=== PATIENT | male | born 1950 | race Caucasian/White ===

== ENCOUNTER → 2016-08-19 | Outpatient (CLI) | payer MEDICARE, BC ==
[~2016-08-19] MED LIST: ASPIRIN81 M2 PO; BRILINTA90 MG PO; CHEWABLE ASPIRI81 MG PO; CLOPIDOGREL75 MG PO; DESYREL50 MG PO; FLOMAX0.4 M1 PO; GABAPENTIN300 MG PO; GLIPIZIDE10 MG PO; GLUCOPHAGE500 M1 PO; GLUCOTROL XL PO; ISOSORBIDE MONO30 M1 PO; LIPITOR80 MG PO; METOPROLOL TAR25 MG PO; MONTELUKAST SOD10 MG PO; NEURONTIN100 MG PO; NICOTINE PATCH1 EACH TD; NITROGLYGERIN0.4 MG SL; NORCO 7.5-3251 EACH PO; NORVASC10 MG PO; VASOTEC2.5 M1 PO; VICODIN ES 7.51 EAC1 PO; VITAMIN D350000 UNIT PO; WELLBUTRIN SR150 M1
--- NOTE | ~2016-08-19 | ST ---
Unit #: [id number] #: [id number] Patient: ИВАН VELASQUEZ [id number] [facility] [address] [facility]. [place], [place] [address] [id number] O MR#: [id number] NAME: ИВАН VELASQUEZ : 1950 SEX: M STUDY DATE/TIME: 08/19/2016 UNIT: [facility] ROOM: STUDY DESCRIPTION: Stress Test Attending Physician: Michael Marinelli M.D. Referring Physician: Michael Marinelli M.D. Primary Care Physician: Yoselin Chirinos [place] CARDIOLOGY REPORT EXAM EKG Portion of a Walking Lexiscan Cardiolite Stress Test REASON FOR EXAM Preop clearance and shortness of breath. DESCRIPTION Baseline EKG was normal sinus rhythm with voltage criteria positive for LVH. Ventricular rate of 868 beats per minute. Total of 0.4 mg of Lexiscan was injected per protocol followed by Cardiolite. The patient was only able to walk one minute before having to stop due to shortness of breath. His maximum METs was 1.5. Resting heart rate of 86 beats per minute moose to a maximum heart rate of 117 bats per minute which represented 75% of the maximal age predicted heart rate. The resting blood pressure of 139/77 moose to a maximum blood pressure of 166/77. The walking portion of the Lexiscan was stopped due to patient's symptoms of shortness of breath and dizziness. However, the Lexiscan had been infused. There were some ST changes and T wave inversions noted in leads II, III and AVF. He did have ST depression primarily in leads II and AVF. No arrhythmias were noted and no ectopy was noted. IMPRESSION 1. This is a positive test. The patient had ST depression in primarily inferior leads. 2. Patient did develop extreme shortness of breath and dizziness and the walking portion of the Lexiscan was terminated prematurely after one minute of exercise. 3. There were no arrhythmias noted. 4. Please correlate with Cardiolite imaging. Dictated by... Indira Duckworth APRN for LizethHernando Richard TD: 08/19/2016 10:50 JOB #: [id number] Unit #: [id number] #: [id number] Patient: ИВАН VELASQUEZ CARDIOLOGY REPORT X CARDIOLOGY REPORT
--- NOTE | ~2016-08-19 | TH ---
Unit #: [id number] #: [id number] Patient: ROBERT VELASQUEZ [id number] [address] [place], [place] [address] [id number] O MR#: [id number] NAME: ИВАН VELASQUEZ : 1950 SEX: M STUDY DATE/TIME: 08/19/2016 UNIT: [facility] ROOM: STUDY DESCRIPTION: Lexiscan stress test - Nuclear Attending Physician: Michael Marinelli M.D. Referring Physician: Michael Marinelli M.D. Primary Care Physician: Yoselin Chirinos [place] CARDIOLOGY REPORT PROCEDURE PERFORMED Lexiscan Cardiolite stress test - Nuclear portion. PROCEDURE Using technetium 99m-labeled Cardiolite, rest and stress SPECT images were obtained. Multiple SPECT images were obtained in various views, including horizontal and vertical long axis and short axis views of the left ventricle. Images were obtained by gated SPECT method. The patient was administered 11.99 mCi of Cardiolite at rest. The patient was administered 31.8 mCi of Cardiolite after Lexiscan infusion was completed. On the stress images, there is a medium sized area of severely decreased tracer uptake activity inferiorly. The rest images show normal perfusion. Comparing the rest and stress images, there is suspicion for stress-induced ischemia involving the inferior wall of the left ventricle. The left ventricular ejection fraction is calculated to be 61%. There is no focal wall motion abnormality seen. CONCLUSION 1. There is suspicion for a medium sized area of stress-induced ischemia involving the inferior wall of the left ventricle. 2. The left ventricular ejection fraction is calculated to be 61%. 3. There is no focal wall motion abnormality seen. 4. Suspicion for ischemia involving the RCA territory. 5. Technically very limited study due to the patient's body habitus. Clinical correlation is requested. Dictated by... Hernando Castellanos TD: 08/19/2016 16:12 JOB #: [id number] Unit #: [id number] #: [id number] Patient: ROBERT VELASQUEZ CARDIOLOGY REPORT X Lizeth Srinivasan MD <ELECTRONICALLY SIGNED> 12/31/16 1429 CARDIOLOGY REPORT
== END | disposition home or self-care (01) ==
LOC: CNUC 07:33
DX: Z01.810 Encounter for preprocedural cardiovascular examination (principal); E10.9 Type 1 diabetes mellitus without complications; R94.31 Abnormal electrocardiogram [ECG] [EKG]; R94.39 Abnormal result of other cardiovascular function study
CPT/HCPCS: 78452; 93017; A9500; J2785

== ENCOUNTER → 2017-02-17 | Outpatient (CLI) | payer MEDICARE, BC ==
[2017-02-17 12:23] LABS: HEMATOCRIT 38.9 % (38.0-50.0); HEMOGLOBIN 12.7 gm/dL (13.0-16.0); MEAN CELL VOLUME 86.7 FL (83-96); MEAN CORPUSCULAR HEMOGLOBIN 28.4 PG (28-34); MEAN CORPUSCULAR HGB CONC 32.8 g/dL (30-36); MEAN PLATELET VOLUME 7.2 FL (6.5-11.5); RED BLOOD COUNT 4.49 X10e (3.90-5.60); RED CELL DISTRIBUTION WIDTH 18.5 % (11.0-15.5)
[2017-02-17 12:55] LABS: ALBUMIN SERUM 3.9 g/dL (3.5-5.0); BILIRUBIN,TOTAL 0.3 mg/dL (0.2-2.0); BUN/CREATININE RATIO 14.44; CALCIUM SERUM 9.8 mg/dL (8.4-10.2); CREATININE SERUM 0.9 mg/dL (0.6-1.4); GLOM FILT RATE Estimated 88.1 mL/min (>60); POTASSIUM 4.6 mmol/L (3.5-5.1); PROTEIN TOTAL SERUM 7.7 g/dL (6.0-8.3)
== END | disposition home or self-care (01) ==
LOC: CAMB 11:37 → EDSTATUS 12:00 → CAMB 12:00
PROVIDERS: Specialist
DX: Z01.812 Encounter for preprocedural laboratory examination (principal); K42.9 Umbilical hernia without obstruction or gangrene
CPT/HCPCS: 36415; 80053; 85027

== ENCOUNTER → 2017-02-21 | Day surgery (SDC) | payer MEDICARE, BC ==
--- NOTE | ~2017-02-21 | OR ---
Unit #: [id number] #: [id number] Patient: ROBERT CALIX [id number] [facility] [address] [facility]. [place], [place] [address] [id number] O MR#: [id number] NAME: ROBERT CALIX ROOM: Date of Procedure: 02/21/2017 Admission Date: 02/21/2017 Surgeon: Arsh Hutchinson M.D. : 1950 Attending Physician: Arsh Hutchinson M.D. Primary Care Physician: Yoselin Chirinos [place] OPERATIVE REPORT PRIMARY CARE MD2U. PREOPERATIVE DIAGNOSES Chronic cholecystitis, cholelithiasis, and incarcerated umbilical hernia. POSTOPERATIVE DIAGNOSES Chronic cholecystitis, cholelithiasis, incarcerated umbilical hernia, and macronodular changes to the liver. PROCEDURES PERFORMED Diagnostic laparoscopy, laparoscopic cholecystectomy, and Sathish-Cut liver biopsy, umbilical hernia repair. ANESTHESIA General endotracheal anesthesia. ESTIMATED BLOOD LOSS Less than 10 mL. INDICATIONS FOR PROCEDURE Mr. Calix is a 66-year-old gentleman, who was sent to the office because of right upper quadrant pain and nausea. Ultrasound revealed cholelithiasis with normal biliary ductal system. On examination in the office, the patient appeared to have some underlying cardiac disease and did have a history of hypertension, diabetes, and stroke. He was sent to Cardiology for evaluation and he subsequently underwent angioplasty and stenting. On followup, he was cleared by Cardiology for general anesthesia. DESCRIPTION OF PROCEDURE The patient was admitted to [facility], positively identified, transported to the operating room, and after induction of general endotracheal anesthesia, he received IV antibiotics per SCIP protocol. A Zhong catheter was placed. SCDs were placed. His abdominal wall was clipped of hair. He was then prepped and draped in usual sterile fashion. A transverse incision above the umbilicus was made. I dissected down and the umbilical skin from the hernia sac. The hernia sac was excised at the level of the fascia and the incarcerated omentum was reduced. The stay sutures were placed in the fascial defect was used to place a Cristhian trocar. Pneumoperitoneum was created. Then, laparoscope was introduced into the peritoneal cavity. Under direct vision, the epigastric and lateral ports were placed. The gallbladder was tensely Unit #: [id number] #: [id number] Patient: ROBERT CALIX distended and could not be grasped, so an ovarian aspirator was used to aspirate the gallbladder and was noted that there was hydrops of the gallbladder. Once the gallbladder had been adequately decompressed, it was grasped and elevated. Adhesions were stripped away and the infundibulum was identified and retracted laterally. [place] was dissected out clearly identifying the cystic duct, gallbladder, and cystic duct-common duct junction. The cystic duct was swept upwards toward the gallbladder and then a single clip was placed in the cystic duct as it entered the gallbladder. Three clips were placed distally and the cystic duct sharply divided. Posteriorly, the cystic artery was doubly clipped proximally and distally and divided. I then dissected the gallbladder out of the liver bed using cautery dissection and once it was freed up from its hepatic attachments, it was brought out through the Cristhian trocar site. I recreated the pneumoperitoneum. I checked the liver bed. There was excellent hemostasis and the clips were well positioned. We irrigated and suctioned the irrigant out. An 11 blade was used to make a small stab incision in the subcostal area. Sathish-Cut needle biopsy forceps was passed under direct vision to perform a liver biopsy. An adequate specimen was returned and hemostasis obtained. I further irrigated and the irrigant came back clear. There was no bleeding from the liver surface. I then closed the epigastric fascial defect using a neoClose device and the closure was airtight. I reduced the pneumoperitoneum, removed laparoscope and trocars. The umbilical hernia was then repaired with multiple interrupted 0 Ethibond sutures. An umbilicoplasty was performed. 30 mL of local anesthetic was infiltrated at the incision and trocar site. Skin was closed at all sites using 4-0 Monocryl subcuticular closure and Dermabond skin adhesive. Sponges and needle counts were correct x3. The patient tolerated the procedure well and transported to recovery in stable condition. The patient will be observed in recovery to see how well he recovers from anesthesia before deciding on his discharge. Dictated by... Hernando Sandra/agatha TD: 02/21/2017 17:02 JOB #: [id number] OPERATIVE REPORT Page 1 of 1 X Arsh Hutchinson MD OPERATIVE NOTE
== END | disposition home or self-care (01) ==
LOC: CSUR 05:51
DX: K80.10 Calculus of gallbladder with chronic cholecystitis without obstruction (principal); K73.9 Chronic hepatitis, unspecified; K76.0 Fatty (change of) liver, not elsewhere classified; K42.0 Umbilical hernia with obstruction, without gangrene; I25.10 Atherosclerotic heart disease of native coronary artery without angina pectoris; I10 Essential (primary) hypertension; E10.9 Type 1 diabetes mellitus without complications; J44.9 Chronic obstructive pulmonary disease, unspecified; N40.0 Benign prostatic hyperplasia without lower urinary tract symptoms; M19.90 Unspecified osteoarthritis, unspecified site; K21.9 Gastro-esophageal reflux disease without esophagitis; G47.30 Sleep apnea, unspecified; Z86.73 Personal history of transient ischemic attack (TIA), and cerebral infarction without residual deficits; Z87.891 Personal history of nicotine dependence; Z79.02 Long term (current) use of antithrombotics/antiplatelets; Z79.84 Long term (current) use of oral hypoglycemic drugs; Z79.899 Other long term (current) drug therapy; Z95.5 Presence of coronary angioplasty implant and graft; Z98.890 Other specified postprocedural states
CPT/HCPCS: 82947; 88304; 88307; 88313; J0131; J0330; J0690; J1940; J2250; J2710; J3010